=== PATIENT | female | born 1985 | race Caucasian/White ===

== ENCOUNTER 2016-09-05 11:34 | Emergency (ER) | payer MEDICAID ==
--- NOTE | 2016-09-05 11:44 | ER Document Report ---
ED Medical Screen (RME) - General Stated Complaint: NECK PAIN,RIGHT EYE AND EAR PAIN Time seen by provider: 11:41 Mode of Arrival: Ambulatory Information source: Patient Notes: 31 yo female presents to ed for pain in the neck up into her head adn eye on the right side. States it also goes into her shoulder. This started around noon on the 1st, she also has ear popping TRAVEL OUTSIDE OF THE [place] IN LAST 30 DAYS: No - HPI Onset: Other - 1st Onset/Duration: Gradual Quality of pain: Sharp - popping Severity: Severe Pain Level: 5 Associated Symptoms: Earache, Headache, Other - neck pain Exacerbated by: Movement Relieved by: Denies Similar symptoms previously: No Recently seen / treated by doctor: No - Related Data Smoking: Cigarettes, Less than 1 pack/day - 1/2 ppd Frequency of alcohol use: Occasional Drug Abuse: None Allergies/Adverse Reactions: No Known Allergies Allergy (Unverified 09/05/16 11:37) Physical Exam - Vital signs Vitals: Temp Pulse Resp BP Pulse Ox 97.9 F 93 20 120/83 98 09/05/16 11:38 09/05/16 11:38 09/05/16 11:38 09/05/16 11:38 09/05/16 11:38 Course - Vital Signs Vital signs: Temp Pulse Resp BP Pulse Ox 97.9 F 93 20 120/83 98 09/05/16 11:38 09/05/16 11:38 09/05/16 11:38 09/05/16 11:38 09/05/16 11:38
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
[2016-09-05] MEDS ORDERED: HYDROCODONE/ACETAMINOPHEN 5-325 MG TABLET PO ONE (14:19)
[2016-09-05] MEDS ORDERED: HYDROCODONE/ACETAMINOPHEN 5-325 MG 6 TAB/DSPK PO PRN (15:13)
[2016-09-05 15:30] VITALS: BP 131/68
== END 2016-09-05 15:09 | disposition home or self-care (01) ==
LOC: ER 11:34
DX: H65.191 Other acute nonsuppurative otitis media, right ear (principal); M54.2 Cervicalgia; H57.11 Ocular pain, right eye; H92.01 Otalgia, right ear; F17.210 Nicotine dependence, cigarettes, uncomplicated
CPT/HCPCS: 99283